=== PATIENT | male | born 1990 | race Caucasian/White ===

== ENCOUNTER → 2017-07-03 | Outpatient (CLI) | payer BC ==
[~2017-07-03] MED LIST: ACET500T68 PO; AMOX-556 PO; FEXO1TAB63 PO; FLUO-202 PO; KET10 PO; LOR5/325 PO; ONDA4TAB PO; ONDA4TAB9 PO; ONDA4TAB97 PO; OXCA600T32 PO; PANT40TA65 PO; PER PO; TRAZ150T8 PO
== END ==
LOC: LAB 16:04
DX: Z31.49 Encounter for other procreative investigation and testing (principal)
CPT/HCPCS: 36415; 84403; 86592; 86703; 86803; 87340

== ENCOUNTER 2017-07-11 17:02 | Emergency (ER) | payer BC ==
[~2017-07-11] VITALS: Ht 193 cm; Wt 145.2 kg
--- NOTE | 2017-07-11 17:23 | ER Report ---
History and Physical Time Seen By MD: 17:09 Hx. of Stated Complaint: PATIENT WAS HOLDING A METAL SPIKE WHILE SOMEONE ELSE WAS HITTING IT WITH A SLEDGEHAMMER. PATIENT REPORTS THAT THE [employer] MISSED AND HIT HIS RIGHT HAND HPI/ROS CHIEF COMPLAINT: Right hand injury HISTORY OF PRESENT ILLNESS: 27-year-old male patient presents to emergency room with complaint of right hand injury. 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 He states that he was going to move it as somewhat he was working with was going to hit it in with a sledgehammer. That he got hit with a sledgehammer. States his sledgehammer wears anywhere from 7-10 pounds. He states that he has a burning sensation when he makes a fist. He denies having a numbness or tingling. He states that he is not having significant pain at this time. He states he is not taking any medication for this. REVIEW OF SYSTEMS: Respiratory: No cough, no dyspnea. Cardiovascular: No chest pain, no palpitations. Gastrointestinal: No vomiting, no abdominal pain. Musculoskeletal: As noted above. Allergies: Coded Allergies: No Known Drug Allergies (Unverified , 02/06/17) Home Meds Reported Medications Oxcarbazepine (TRILEPTAL) 600 Mg Tablet, 900 MG PO QDAY 02/25/16 Fluoxetine Hcl (PROZAC) 20 Mg Capsule, 20 MG PO QDAY, CAPSULE 02/25/16 Trazodone Hcl (TRAZODONE HCL) 150 Mg Tablet, 150 MG PO QHS 02/25/16 Discontinued Scripts Hydrocodone Bit/Acetaminophen (HYDROCODON-ACETAMINOPHEN 5-325) 1 Each Tablet, 1 EACH PO Q4-6H Y for PAIN, #6 TAB 0 Refills TAKE ONE TABLET BY MOUTH EVERY 4-6 HOURS NEEDED FOR PAIN Prov:ROXI MELENDEZ MD 02/06/17 Pantoprazole Sodium (PANTOPRAZOLE SODIUM) 40 Mg Tablet., 40 MG PO QDAY, #30 TAB.SR 3 Refills Prov:DES CHILDERS MD 08/25/16 Past Medical/Surgical History Patient has a past medical history of TIA, migraines, pneumonia, polyps, arthritis, fractures, back pain, spice use, anxiety, depression, suicide attempt. Patient has a surgical history of surgery for an undescended testicle. Patient has a family medical history of cancer. Reviewed Nurses Notes: Yes Hx Smoking: Yes (SMOKED 5 YEARS, 1/2 TO 1 PPD) Smoking Status: Former Smoker Exposure to Second Hand Smoke?: No Hx Substance Use Disorder: Yes ("SMOKED SPICE") Hx Alcohol Use: No Constitutional Vital Sign - Last 24 Hours 07/11/17 17:05 Temp 98.6 Pulse 78 Resp 20 B/P (MAP) 157/99 Pulse Ox 92 O2 Delivery Room Air Physical Exam General Appearance: The patient is alert, has no immediate need for airway protection and no current signs of toxicity. Respiratory: Chest is non tender, lungs are clear to auscultation. Cardiac: regular rate and rhythm Musculoskeletal: Extremities have full range of motion and are non tender. Patient has a small abrasion lateral to the MCP joint of the fifth finger, some swelling to the fifth MCP joint. Skin: No rashes or lesions. DIFFERENTIAL DIAGNOSIS: After history and physical exam differential diagnosis was considered for contusion, fracture, strain. Medical Decision Making EKG/Imaging Imaging INDICATION: crush injury to hand. DATE: 07/11/2017 5:51 PM. TECHNIQUE: HAND COMPLETE RIGHT COMPARISON: None FINDINGS: Normal alignment without fracture or dislocation. No erosions. No significant degenerative findings. IMPRESSION: No acute osseous abnormality. Report Dictated By: Jazmine Sanches MD at 07/11/2017 5:51 PM Report E-Signed By: Jazmine Sanches MD at 07/11/2017 5:54 PM ED Course/Re-evaluation ED Course Patient was admitted to exam room, history and physical obtained. Differential diagnoses were considered. On examination patient has some swelling to the right fifth MCP, small abrasion lateral to the fifth MCP. There was an x-ray done. There are no fractures noted on the x-ray. I discussed this with the patient and his significant other. We'll go ahead and discharge him home at this time. He is to ice, rest, limit activity by pain. He states Tylenol or ibuprofen as needed for pain. He is follow-up with his primary care provider with any concerns. He is obviously to return to emergency room if condition worsens. Patient verbalized understanding and agreement with plan. Decision to Disposition Date: Jul 11, 2017 Decision to Disposition Time: 17:59 Depart Departure Latest Vital Signs Vital Signs Date Time Temp Pulse Resp B/P (MAP) Pulse Ox O2 Delivery O2 Flow Rate FiO2 07/11/17 17:05 98.6 78 20 157/99 92 Room Air Impression: Primary Impression: Hand contusion Condition: Improved Disposition: HOME OR SELF-CARE Patient Instructions: Contusion in Adults (ED) Additional Instructions: Limit activity by pain. Ice the hand 2-3 times a day for 10-15 minutes. Take Tylenol or Ibuprofen as needed for pain. Follow up with your primary care provider in the next week. Get plenty of rest. Problem Qualifiers Primary Impression: Hand contusion Encounter type: initial encounter Laterality: right Qualified Codes: S60.221A - Contusion of right hand, initial encounter NIDIA REYES Jul 11, 2017 17:23
--- NOTE | 2017-07-11 17:57 | RADIOLOGY IMAGING REPORT ---
FACILITY: [facility] - [place] PATIENT NAME: Samuel Crisostomo : 1990 MR: [id number] V: [id number] EXAM DATE: ORDERING PHYSICIAN: NIDIA REYES TECHNOLOGIST: Location: [facility] [place] Patient: Samuel Crisostomo : 1990 Visit/Account:[id number] Date of Sevice: 07/11/2017 INDICATION: crush injury to hand. DATE: 07/11/2017 5:51 PM. TECHNIQUE: HAND COMPLETE RIGHT COMPARISON: None FINDINGS: Normal alignment without fracture or dislocation. No erosions. No significant degenerative findings. IMPRESSION: No acute osseous abnormality. Report Dictated By: Jazmine Sanches MD at 07/11/2017 5:51 PM Report E-Signed By: Jazmine Sanches MD at 07/11/2017 5:54 PM WSN:[id number]
[2017-07-11 18:00] VITALS: BP 138/67
== END 2017-07-11 18:07 | disposition home or self-care (01) ==
LOC: ER 17:06
DX: S60.221A Contusion of right hand, initial encounter (principal); W22.8XXA Striking against or struck by other objects, initial encounter
CPT/HCPCS: 99283

== ENCOUNTER 2018-02-01 09:30 | Emergency (ER) | payer SELFPAY ==
--- NOTE | 2018-02-01 09:46 | ER Report ---
History and Physical Time Seen By MD: 09:46 Hx. of Stated Complaint: SOB FOR 6 DAYS. CAN'T SLEEP AT NIGHT. ON O2 WHILE SLEEPING. BREATHING IS WORSE TODAY. HAS A TIGHT COUGH Allergies: Coded Allergies: No Known Drug Allergies (Unverified , 02/01/18) Home Meds Discontinued Reported Medications Oxcarbazepine (TRILEPTAL) 600 Mg Tablet, 900 MG PO QDAY 02/25/16 Fluoxetine Hcl (PROZAC) 20 Mg Capsule, 20 MG PO QDAY, CAPSULE 02/25/16 Trazodone Hcl (TRAZODONE HCL) 150 Mg Tablet, 150 MG PO QHS 02/25/16 Hx Smoking: Yes (SMOKED 5 YEARS, 1/2 TO 1 PPD) Smoking Status: Former Smoker Exposure to Second Hand Smoke?: No Hx Substance Use Disorder: Yes ("SMOKED SPICE") Hx Alcohol Use: No Constitutional Vital Sign - Last 24 Hours 02/01/18 02/01/18 02/01/18 02/01/18 09:30 09:35 09:35 09:45 Temp 99.3 Pulse ??? 84 85 Resp 18 B/P (MAP) 135/97 (110) Pulse Ox 91 90 O2 Delivery Room Air 02/01/18 02/01/18 02/01/18 02/01/18 10:00 10:00 10:00 10:15 Pulse 84 81 ??? Resp 14 B/P (MAP) 141/84 (103) Pulse Ox 94 99 94 O2 Delivery Room Air 02/01/18 10:17 O2 Flow Rate 2.0 Depart Departure Latest Vital Signs Vital Signs Date Time Temp Pulse Resp B/P (MAP) Pulse Ox O2 Delivery O2 Flow Rate FiO2 02/01/18 10:17 2.0 02/01/18 10:15 ??? 94 02/01/18 10:00 141/84 (103) 02/01/18 10:00 14 02/01/18 10:00 Room Air 02/01/18 09:35 99.3 New Scripts No Active Prescriptions or Reported Meds OSEI VARGAS MD Feb 01, 2018 09:46
[2018-02-01] MEDS ORDERED: ALBUTEROL/IPRATROPIUM 3 ML NEB NEB ONE (09:50)
[2018-02-01 10:00] VITALS: BP 141/84
--- NOTE | 2018-02-01 10:46 | RADIOLOGY IMAGING REPORT ---
FACILITY: [facility] - [place] PATIENT NAME: Samuel Crisostomo : 1990 MR: [id number] V: [id number] EXAM DATE: ORDERING PHYSICIAN: OSEI VARGAS TECHNOLOGIST: Location: [facility] [place] Patient: Samuel Crisostomo : 1990 Visit/Account:[id number] Date of Sevice: 02/01/2018 Exam type: CHEST PA AND LAT History: cough and wheeze Comparison: None. Findings: There is patchy airspace consolidation in the superior segment of the left lower lobe. Small amount linear stranding is seen in the right upper lung field. There is no evidence of pleural effusions. Cardiac silhouette is normal. The trachea is midline. IMPRESSION: Patchy airspace consolidation in the superior segment left lower lobe likely an acute pne umonia given the clinical history Linear stranding right upper lung field consistent with scarring versus atelectasis Report Dictated By: Caren Ingram MD at 02/01/2018 10:39 AM Report E-Signed By: Caren Ingram MD at 02/01/2018 10:41 AM WSN:[id number]
[2018-02-01] MEDS ORDERED: AZIT-18 PO (11:30)
[2018-02-01] MEDS ORDERED: PROM5SYR PO (11:30)
--- NOTE | 2018-02-01 11:31 | ER Report ---
History and Physical Time Seen By MD: 11:18 Hx. of Stated Complaint: SOB FOR 6 DAYS. CAN'T SLEEP AT NIGHT. ON O2 WHILE SLEEPING. BREATHING IS WORSE TODAY. HAS A TIGHT COUGH HPI/ROS CHIEF COMPLAINT: Shortness of breath HISTORY OF PRESENT ILLNESS: 27-year-old male patient presents to emergency room with complaints shortness of breath. Patient states that he is had this for the past several days. He states this worsened in the last 24 hours. He states he is having significant coughing. He states is nonproductive, although he states that he can taste some mucus, although he is not able to cough it up. Patient states yesterday he had a fever 103. He states he did not take any medication for this. He denies having any nausea, vomiting or diarrhea. Patient states these working for [employer] group working on the [employer]. He states that he is having a hard time being short of breath and coughing all the time. Patient has not taken any medication for this. He states he became concerned because last night he was unable to sleep at all. REVIEW OF SYSTEMS: Respiratory: As noted above. Cardiovascular: No chest pain, no palpitations. Gastrointestinal: No vomiting, no abdominal pain. Musculoskeletal: No back pain. Allergies: Coded Allergies: No Known Drug Allergies (Unverified , 02/01/18) Home Meds Active Scripts Promethazine HCl/Codeine (Prometh-Codein 6.25-10 mg/5 ml) 5 Ml Syrup, 1 TSP PO QHS Y for COUGH, #120 ML Prov:NIDIA REYES [facility] 02/01/18 Azithromycin 250 Mg Tab (AZITHROMYCIN 250 MG TAB) 250 Mg Tablet, 1 TAB PO QDAY, #6 TAB Take 2 tabs today and then 1 tab a day until gone. Prov:NIDIA REYES [facility] 02/01/18 Discontinued Reported Medications Oxcarbazepine (TRILEPTAL) 600 Mg Tablet, 900 MG PO QDAY 02/25/16 Fluoxetine Hcl (PROZAC) 20 Mg Capsule, 20 MG PO QDAY, CAPSULE 02/25/16 Trazodone Hcl (TRAZODONE HCL) 150 Mg Tablet, 150 MG PO QHS 02/25/16 Past Medical/Surgical History Patient has a past medical history of TIA, migraines, pneumonia, arthritis, fractures, back pain, smokes spice, anxiety, depression, suicide attempt. Patient has a surgical history of surgery for an undescended testicle, colonoscopy. Patient has a family medical history of colon cancer. Hx Smoking: Yes (SMOKED 5 YEARS, 1/2 TO 1 PPD) Smoking Status: Former Smoker Exposure to Second Hand Smoke?: No Hx Substance Use Disorder: Yes ("SMOKED SPICE") Hx Alcohol Use: No Constitutional Vital Sign - Last 24 Hours 02/01/18 02/01/18 02/01/18 02/01/18 09:30 09:35 09:35 09:45 Temp 99.3 Pulse ??? 84 85 Resp 18 B/P (MAP) 135/97 (110) Pulse Ox 91 90 O2 Delivery Room Air 02/01/18 02/01/18 02/01/18 02/01/18 10:00 10:00 10:00 10:15 Pulse 84 81 ??? Resp 14 B/P (MAP) 141/84 (103) Pulse Ox 94 99 94 O2 Delivery Room Air 02/01/18 10:17 O2 Flow Rate 2.0 Medical Decision Making EKG/Imaging Imaging Exam type: CHEST PA AND LAT History: cough and wheeze Comparison: None. Findings: There is patchy airspace consolidation in the superior segment of the left lower lobe. Small amount linear stranding is seen in the right upper lung field. There is no evidence of pleural effusions. Cardiac silhouette is normal. The trachea is midline. IMPRESSION: Patchy airspace consolidation in the superior segment left lower lobe likely an acute pneumonia given the clinical history Linear stranding right upper lung field consistent with scarring versus atelectasis Report Dictated By: Caren Ingram MD at 02/01/2018 10:39 AM Report E-Signed By: Caren Ingram MD at 02/01/2018 10:41 AM ED Course/Re-evaluation ED Course Patient was admitted to an exam room, history and physical were obtained. Differential diagnoses were considered. On examination lungs are clear, heart is regular, abdomen is soft nontender. Patient does have a pretty consistent cough. His oxygen on my initial exam. I did review his x-rays and he was positive for a pneumonia in the left lower lobe. As I was talking the patient he had 99% on 2 L. I did take the oxygen off. He stayed in the low 90s. He does have oxygen that he wears at night. I will go ahead and have him continue doing that. We will treat him with azithromycin. 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 Patient is to follow-up with his primary care provider with any concerns. Patient will be given a prescription for azithromycin as well as a limited supply of promethazine with codeine cough syrup for nighttime. He verbalized understanding and agreement with plan. Decision to Disposition Date: Feb 01, 2018 Decision to Disposition Time: 11:33 Depart Departure Latest Vital Signs Vital Signs Date Time Temp Pulse Resp B/P (MAP) Pulse Ox O2 Delivery O2 Flow Rate FiO2 02/01/18 10:17 2.0 02/01/18 10:15 ??? 94 02/01/18 10:00 141/84 (103) 02/01/18 10:00 14 02/01/18 10:00 Room Air 02/01/18 09:35 99.3 Impression: Primary Impression: Pneumonia Condition: Improved Disposition: HOME OR SELF-CARE New Scripts Promethazine HCl/Codeine (Prometh-Codein 6.25-10 mg/5 ml) 5 Ml Syrup 1 TSP PO QHS Y for COUGH, #120 ML Prov: NIDIA REYES 02/01/18 Azithromycin 250 Mg Tab (AZITHROMYCIN 250 MG TAB) 250 Mg Tablet 1 TAB PO QDAY, #6 TAB Take 2 tabs today and then 1 tab a day until gone. Prov: NIDIA REYES 02/01/18 Patient Instructions: Community Acquired Pneumonia (ED) Additional Instructions: Increase fluid intake. Get plenty of rest. No work today or tomorrow. Follow up with your primary care provider in the next week. Return to the ER if condition worsens. Wear oxygen whenever you are sleeping. Problem Qualifiers Primary Impression: Pneumonia Pneumonia type: due to unspecified organism Laterality: left Lung location : lower lobe of lung Qualified Codes: J18.1 - Lobar pneumonia, unspecified organism NIDIA REYES Feb 01, 2018 11:31
[2018-02-01] MEDS ORDERED: ALBUTEROL 8 GM INHALER INH ONE (11:35)
== END 2018-02-01 11:40 | disposition home or self-care (01) ==
LOC: ER 09:41
DX: J18.1 Lobar pneumonia, unspecified organism (principal)
CPT/HCPCS: 71046; 94640; 99283; J3535; J7620